=== PATIENT | female | born 1950 | race Caucasian/White ===

== ENCOUNTER 2016-10-13 06:58 | Day surgery (SDC) | payer OTHER ==
[2016-10-13] MEDS ORDERED: ceFAZolin Inj 2gm (Premix) 50 ML IV ONE (07:14)
[2016-10-13] MEDS ORDERED: LIDOCAINE W/ SODIUM BICARB 0.5 ML SYR ONE (07:14)
[2016-10-13] MEDS ORDERED: Lactated Ringers 1,000 ML PRIMARY IV ONE (07:15)
[2016-10-13] MEDS ORDERED: MIDAZOLAM 5 MG/1 ML ONE (10:28)
[2016-10-13] MEDS ORDERED: BUPivacaine Inj 0.5% PF (5mg/ml) 10ml vial ONE ×2 (10:28→13:18)
[2016-10-13] MEDS ORDERED: fentaNYL Inj 250 MCG/5 ML VIAL ONE (10:28)
[2016-10-13] MEDS ORDERED: LIDOCAINE MPF 2% - 5 ML (20 MG/1 ML) ONE (10:28)
[2016-10-13] MEDS ORDERED: LIDOCAINE 2% 20 MG/ML - 20 ML VIAL ONE (11:07)
[2016-10-13] MEDS ORDERED: NORMAL SALINE 10 ML SYRINGE FLUSH IVP PRN (13:51)
[2016-10-13] MEDS ORDERED: KETOROLAC 30 MG/1 ML VIAL IVP ONE (13:55)
[2016-10-13] MEDS ORDERED: KETOROLAC 30 MG/1 ML VIAL ONE (14:14)
[2016-10-13 14:22] VITALS: RESP 14
--- NOTE | 2016-10-13 14:27 | OPS CRUTCH ---
Diagnosis : Right 1st Metatarsal Exostosis/Left 2nd Tendon Release, 3rd Hammertoe, 4th Release Referral Reason: CAM Walker O: The patient was issued a CAM Walker and instructed in its proper use and care. P: No further therapy is indicated at this time.[] MTDD
[2016-10-13] MEDS ORDERED: oxyCODONE-ACETAMINOPHEN 5-325 TAB PO ONE ×2 (15:15→15:38)
[2016-10-13 16:02] VITALS: TEMP 98.2
--- NOTE | 2016-10-13 16:24 | DI ---
History: Postop x-ray Comparison: None Findings: Medullary screw transfixes the PIP joint of the third toe. Alignment is good. Solitary screw is projected within the distal first metatarsal. No acute fractures. Impression: Postoperative changes. No acute injury
--- NOTE | 2016-10-13 17:43 | GEN.OPNOTE ---
Operative Report Surgeon: Dr. Buddy Salas DPJose Alfredo Anesthesia Type: Local, MAC Anesthesia Provider: Luis Paula CRNA Surgery Date: 10/13/16 Preoperative Diagnosis: Testing, exostosis first metatarsal right foot. Hammertoe digits 2 through 4 on the left foot. Postoperative Diagnosis: Same Procedure: Exostectomy medial aspect first metatarsal right foot. Third digit hammertoe correction with Protopic implant, second digit flexor tendon release and extensor tendon lengthening. Fourth digit exostectomy and flexor tendon release. Description of Procedure: A well-padded pneumatic ankle tourniquet was placed about the right ankle. Local anesthesia was then injected in and about the first metatarsal medial aspect with a one-to-one mixture of half percent Marcaine and 2% lidocaine. Esmarch bandage was used to exsanguinate the right foot tourniquet was inflated. Attention was directed to medial aspect of the first metatarsal where approximately 2-3 cm incision was made incision was deepened using sharp and blunt dissection care being taken to identify and retract all vital neurovascular sharp curet down to level of exostosis which was transected with osteotome and bone file. Once this was done the periosteum was reapproximated with 4-0 Vicryl. Subcutaneous was reapproximated with 4-0 Monocryl and reinforced with 4-0 nylon. The ankle tourniquet was deflated to dry sterile bandage was applied to the foot. Attention was directed to the left foot where tourniquet was applied to the left ankle. Local anesthesia consisting of 1:1 mixture of 2% lidocaine and half percent Marcaine was injected in and about second, third and fourth rays. Incision was then made over the dorsal aspect of the third digit the incision was deepened using sharp and blunt dissection down to the level of the extensor tendon were Z lengthening procedure was used on the tendon. Medial capsule release was performed at the third MPJ. The incision was then carried down to the level of the PIP joint were the head of the proximal phalanx was transected with an oscillating bone saw, the base of the middle phalanx was then transected with an oscillating bone saw. Once this was done a K wire was then inserted through the middle phalanx out the distal phalanx out the end of the toenail retrograded back on the proximal phalanx. Once the appropriate sized pro-toe which measured, a guide was then used on the middle phalanx to make way for the head of the pro-toe. 16 mm length pro-toe with 2.4 mm head was then selected.The pro-toe was then screwed into the proximal phalanx and the head was then secured into the middle phalanx. Subcutaneous tissue was then reapproximated and coapted with 4-0 Vicryl the skin was then reapproximated and coapted with 4-0 nylon in a running interlocking suture technique. Attention was then directed to the 2nd digit where approximately to 3 cm incision was made over the second MPJ the incision was deepened down to level of the extensor tendon was lengthened Z lengthening tenotomy. Subcutaneous tissues reapproximated with 4-0 Vicryl. And the skin was reapproximated with 4-0 Monocryl and 4-0 nylon. Once this is done attention was directed to the plantar surface of the second digit at the plantar aspect of the DIP joint were 8 mm incision was made down to the level of the flexor tendon which was released with tenotomy scissors, skin was closed with 4-0 nylon. Attention was then directed to the dorsal aspect of the fourth digit where an incision was made on the lateral dorsal aspect of the fourth digit where there is a painful soft corn the incision was carried down to level of the lateral aspect of the proximal phalanx head which was transected and dissected with an oscillating bone saw. The subcutaneous tissue is reapproximated and coapted with 4-0 Vicryl the skin was reapproximated and coapted with 4-0 nylon. Attention was directed to the plantar aspect of the DIP joint where once the median incision was made flexor tendon was visualized and released with small tenotomy scissors. The skin was reapproximated and coapted with 4-0 nylon. Local anesthesia was then injected in the first second and third interspaces with half percent Marcaine. Dry sterile dressing consisting of Mastisol, Steri-Strips, Xeroform gauze, 4 x 4 gauze and Coban was applied to bilateral feet. The ankle tourniquet was deflated and a prompt hyperemic response was noted to the toes, the patient tolerated the procedure well, following a brief period of postoperative monitoring the patient will be sent home with both written and oral postoperative instructions. Patient is to follow-up in Dr. Salas's office approximately 1 week.
== END 2016-10-13 16:05 | disposition home or self-care (01) ==
LOC: SDSC 06:58
PROVIDERS: ATTEND Podiatrist Foot & Ankle Surgery
DX: M20.42 Other hammer toe(s) (acquired), left foot (principal); M79.672 Pain in left foot; M79.671 Pain in right foot; M89.9 Disorder of bone, unspecified
CPT/HCPCS: 28234; 28285 ×3; 73620; 73630; J0690; J1885; J2001; J2250; J2704; J3010; J3490; L4360; J7120